=== PATIENT | female | born 1990 | race Caucasian/White ===

== ENCOUNTER 2022-04-05 01:16 | Inpatient (IN) ==
[2022-04-05] MEDS ORDERED: LACTATED RINGER'S 1,000 ML IV PRN (01:53)
[2022-04-05] MEDS ORDERED: LIDOCAINE 1% LOCAL 20 ML VIAL INFIL PRN (01:53)
[2022-04-05] MEDS ORDERED: OXYTOCIN 30 UNITS/500 ML BAG IV PRN ×2 (01:53→07:19)
[2022-04-05 02:18] LABS: Hematocrit (blood only) 36.2 % (34.1-44.9); Hemoglobin 12.2 g/dl (12.0-16.0); Mean Corpuscular Hemoglobin 28.6 pg (25.0-34.0); Mean Corpuscular Hgb Conc 33.7 g/dL (32.0-36.0); Mean Platelet Volume 12.9 fL (9.4-12.3); Platelet Count 178 K/uL (130-400); RDW Coefficient of Variation 13.7 % (11.5-14.5); RDW Standard Deviation 42.2 fL (36.4-46.3); Red Blood Count 4.26 M/uL (3.93-5.22); White Blood Count 13.28 K/ul (4.8-10.8)
[2022-04-05] MEDS ORDERED: ePHEDrine sulfate 50 MG/ML AMP ONE (03:30)
[2022-04-05] MEDS ORDERED: SODIUM CHLORIDE 0.9% INJ 10 ML VIAL ONE (03:31)
[2022-04-05] MEDS ORDERED: BUPIVACAINE 0.25% 30 ML VIAL ONE (03:31)
[2022-04-05] MEDS ORDERED: fentaNYL citrate 100 MCG/2 ML VIAL ONE (03:31)
[2022-04-05] MEDS ORDERED: LIDOCAINE 2%/EPINEPHRINE 1:200,000 20 ML SDV ONE (03:31)
[2022-04-05] MEDS ORDERED: fentaNYL 2MCG/ML ROPIVACAINE 1.25MG/ML 100 ML BAG EPI ONE (03:32)
--- NOTE | 2022-04-05 04:11 | Anesthesiology Consultation ---
Date of Service April 05, 2022 Assessment & Plan Chart Review Chart Review: Acceptable Risk for Labor Epidural Consults Requested none ASA ASA2 Proposed Anesthesia Anesthesia Type: Labor Epidural Risk / Benefits Reviewed With: PT / POA / Parent / Guardian, Accepts Plan and Informed Consent Obtained History Surgery labor epidural Height/Weight Height: 5 ft 2 in Weight: 82.554 kg Allergies Allergy/AdvReac Type Severity Reaction Status Date / Time cefaclor Allergy Mild RASH Verified 03/31/22 10:28 Medications Home Medications Medication Instructions Recorded Confirmed Last Taken multivit-min no.71-iron fum 28 1 cap PO DAILY #90 caps 12/18/20 04/05/22 Unknown mg-folate no.1 1 mg-dha 300 mg capsule (PN[facility]-[place]) valacyclovir 500 mg tablet 500 mg PO BID PRN outbreak 3 days 04/03/21 04/05/22 04/04/22 22:00 #18 tabs aspirin 81 mg capsule 81 mg PO DAILY 08/18/21 04/05/22 Unknown valacyclovir 500 mg tablet 500 mg PO BID 5 weeks #70 tabs 02/23/22 03/31/22 Unknown (Valtrex) Active Medications Generic Name Dose Route Start Last Admin Trade Name Freq PRN Reason Stop Dose Admin Lactated Ringer's 1,000 mls @ 125 mls/hr 04/05/22 01:53 04/05/22 03:25 Lr IV 04/07/22 01:52 999 mls/hr .Q8H PRN Administration L&D Protocol Protocol NPO Date Last Intake of Fluids: 04/05/22 Time Last Intake of Fluids: 04:00 Date Last Intake of Solids: 04/04/22 Time Last Intake of Solids: 19:00 Past Medical History Medical History Endometritis Female infertility Fertility testing Genital herpes History of ovarian cyst right History of recurrent miscarriages HSV-1 infection IUD (intrauterine device) in place 01/22/15-mirena removed 01/2020 Left acute otitis media Exercise / Class Metabolic Activity II 4-5 Yardwork/Stairs/Walk up hill Past Family History Family History Aunt Breast cancer maternal aunt x2 Uncle Prostate cancer Grandmother (Maternal) Pancreatic cancer Mother Hypertension Unknown Enlarged heart Sister Patent ductus arteriosus with repair at 1 year old Denies family history of Colon cancer Ovarian cancer Myocardial infarction Uterine cancer Past Surgical History Surgical History History of appendectomy History of tonsillectomy S/P wisdom tooth extraction Past Anesthesia History No Hx of Anesthesia Complications and No Family Hx of Anesthesia Complications History of PONV No Hx of PONV and No Hx of Motion Sickness Social History Smoking Status: Former smoker Hx Alcohol Use: No Hx Substance Use: No Physical Exam Vital Signs Last Vital Signs Temp 37.2 C 04/05/22 01:31 Pulse 88 04/05/22 04:01 Resp 20 04/05/22 01:31 BP 144/104 H 04/05/22 01:53 Pulse Ox 99 04/05/22 04:01 ENMT Mouth: + small oral opening; no TMJ abnormality Thyromental Distance: > or= 3.5 Finger Breadths Mallampati Class: III Neck normal visual inspection and trachea midline; neck extension not limited Respiratory normal respiratory effort Auscultation: lungs clear to auscultation bilaterally Cardiovascular Rate/Rhythm: regular rate and regular rhythm Heart Sounds: no murmur Musculoskeletal Spine: normal cervical ROM Extremities: full ROM of extremities Neurologic moves all extremities Psychiatric Orientation: alert and oriented x 3 Testing Laboratory Results 04/05/22 02:05 Blood Type O Positive 04/05/22 02:05
[2022-04-05] MEDS ORDERED: PROMETHAZINE HCL 25 MG in SODIUM CHLORIDE 0.9% 50 ML IV PRN (04:31)
[2022-04-05] MEDS ORDERED: ONDANSETRON INJ 2 MG/ML 2 ML VIAL IV PRN (04:31)
[2022-04-05] MEDS ORDERED: METOCLOPRAMIDE HCL 20 MG in SODIUM CHLORIDE 0.9% 50 ML IV PRN (04:31)
[2022-04-05] MEDS ORDERED: diphenhydrAMINE 50 MG/ML VIAL IV PRN (04:31)
[2022-04-05] MEDS ORDERED: NALOXONE HCL 0.4 MG/1 ML VIAL/CARP IV PRN (04:31)
[2022-04-05] MEDS ORDERED: fentaNYL 2MCG/ML ROPIVACAINE 1.25MG/ML 100 ML BAG EPI PRN (04:31)
[2022-04-05] MEDS ORDERED: ePHEDrine sulfate 50 MG/ML AMP IV PRN (04:31)
[2022-04-05] MEDS ORDERED: NALOXONE HCL 1 MG in SODIUM CHLORIDE 0.9% 1000ML 1,000 ML IV PRN (04:31)
[2022-04-05] MEDS ORDERED: NALBUPHINE HCL INJ 10 MG/ML AMP IV PRN (04:31)
--- NOTE | 2022-04-05 07:02 | Delivery Summary ---
Vaginal Delivery Summary Date of Service April 05, 2022 Patient arrived in active labor spontaneously requested epidural this was her second baby was uncomplicated she was at term she then ruptured spontaneously and is not fully dilated pushed over 7 tractions delivery baby in occiput anterior position there was some thin meconium baby's mouth and nares were then suctioned with bulb gentle traction on the baby no excessive force no nuchal cord live vigorous male infant cord clamped and cut cord blood obtained placenta removed with gentle traction IV Pitocin started uterine tone improved there was no tearing estimated blood loss 150 mL sponge and instrument counts were correct
[2022-04-05] MEDS ORDERED: bisacodyL 10 MG SUPP PR PRN (07:19)
[2022-04-05] MEDS ORDERED: BENZOCAINE 20% AER SPR 82.5 GM CAN EXT PRN (07:19)
[2022-04-05] MEDS ORDERED: ACETAMINOPHEN 325 MG TAB PO PRN (07:19)
[2022-04-05] MEDS ORDERED: HYDROCORTISONE ACETATE 25 MG SUPP PR PRN (07:19)
[2022-04-05] MEDS ORDERED: DIPHTHERIA/TETANUS/PERTUSSIS 0.5 ML SYR/VIAL IM ONE (07:19)
[2022-04-05] MEDS ORDERED: oxyCODONE/ACETAMINOPHEN 5mg/325mg TAB PO PRN (07:19)
--- NOTE | 2022-04-05 08:03 | Anesthesia Procedure Note ---
Date of Service April 05, 2022 Anesthesia Post Epidural Note Vital Signs Vital Signs: Temp Pulse Resp BP Pulse Ox 37.0 C 103 H 18 140/76 100 04/05/22 07:15 04/05/22 07:59 04/05/22 07:45 04/05/22 07:59 04/05/22 06:52 Pain Intensity Lower Abdomen: Pain Intensity: 1 Notes Mental Status: alert / awake / arousable and participated in evaluation Nausea / Vomiting: adequately controlled Pain: adequately controlled Airway Patency, RR, SpO2: stable & adequate BP & HR: stable & adequate Hydration State: stable & adequate Neuraxial Anesthesia: was administered and sensory block is resolving Anesthetic Complications: no major complications apparent and Pt Satisfied with anesthetic care Epidural: Removed without complications and With tip intact
[2022-04-05] MEDS: DOCUSATE SODIUM 100 MG CAP PO SCH ×2 (09:17→20:54)
[2022-04-05] MEDS: IBUPROFEN 600 MG TAB PO PRN ×3 (09:17→20:20)
[2022-04-05] MEDS: PRENATAL VITAMIN 1 TAB PO SCH (09:17)
[2022-04-06] MEDS: IBUPROFEN 600 MG TAB PO PRN ×2 (01:40→09:25)
[2022-04-06 06:55] LABS: Hematocrit (blood only) 30.7 % (34.1-44.9); Hemoglobin 10.6 g/dl (12.0-16.0); Mean Corpuscular Hemoglobin 29.1 pg (25.0-34.0); Mean Corpuscular Hgb Conc 34.5 g/dL (32.0-36.0); Mean Corpuscular Volume 84.3 fL (80.0-100.0); Mean Platelet Volume 12.1 fL (9.4-12.3); Platelet Count 181 K/uL (130-400); RDW Standard Deviation 42.7 fL (36.4-46.3); Red Blood Count 3.64 M/uL (3.93-5.22); White Blood Count 13.52 K/ul (4.8-10.8)
--- NOTE | 2022-04-06 07:37 | Obstetrical Progress Note ---
Date of Service <Alexander Nolasco DO - Last Filed: 04/06/22 07:38> April 06, 2022 Assessment & Plan <Alexander Nolasco DO - Last Filed: 04/06/22 07:38> (1) Encounter for care and examination after delivery: - Feels well today. Eating well, voiding well, ambulating well. - Pain well controlled with ibuprofen 600mg Q4H PRN - Routine care -- OOB, ambulation, diet progression as tolerated - After discharge will have 6 week follow-up with Dr. Sage. - Plan to D/C today. <Radha Parham, DO - Last Filed: 04/06/22 07:51> (1) Encounter for care and examination after delivery: Subjective <Alexander Nolasco DO - Last Filed: 04/06/22 07:38> Ambulation: ambulating normally Voiding: no voiding problems Passing Gas:: Yes Diet Tolerance:: regular diet Lochia:: Small Feeding Type:: breast feeding Current Pain Level(1-10): 0 Patient is a 32 y/o female who is now PPD # 1 following spontaneous vaginal delivery at 39 weeks and 5 days. Reports feeling well overall this morning. No abdominal cramping & 0-1/10 pain well managed on analgesics. Voiding well. Tolerating meals overnight and able to ambulate some. Able to pass gas and has had a normal bowel movement. Has some persistent lochia with some improvement this morning. Currently breast feeding. Review of Systems Denies fever, chills, sweats Denies shortness of breath, difficulty breathing, chest pain, palpitations, chest pressure. Denies breast pain. Denies dysuria. Denies headache or changes in vision. Physical Exam <Alexander Nolasco DO - Last Filed: 04/06/22 07:38> General: Alert, oriented. No acute distress. Cardiac: Regular rate and rhythm, no murmurs/rubs/gallops. Respiratory: Clear to auscultation bilaterally a/p, no wheezes/rales/rhonchi. No increased work of breathing. Symmetrical chest rise. No respiratory distress. Abdomen: Soft, nontender, nondistended. Bowel sounds present. Uterus: Uterine fundus firm, palpable 2 cm below umbilicus. Lower Extremities: No lower extremity edema or swelling. No deep calf pain. Roxy's negative bilaterally. Results & Data ([facility]) <Alexander Nolasco DO - Last Filed: 04/06/22 07:38> Vital Signs (Past 12 Hours) Vital Signs Temp Pulse Resp BP BP Pulse Ox O2 Del Method 04/06/22 04:30 36.7 C 89 18 121/77 97 Room Air 04/06/22 01:30 36.5 C 86 18 135/88 98 Room Air 04/05/22 20:15 36.8 C 97 H 18 132/88 96 Room Air <Radha Parham DO - Last Filed: 04/06/22 07:51> Co-Signing Physician Notes Resident Physician Supervision Note: I was present with Dr. Nolasco during the history and exam. I discussed the case with the resident and agree with the findings and plan as documented in the no te. Any exceptions or clarifications are listed here: PPD#1 doing well. Desires DC home. Reviewed PP instructions, followup 6w. Documented By: Radha Parham DO Resident Activity Tracking <Alexander Nolasco DO - Last Filed: 04/06/22 07:38> Resident Involvement: Resident Care Provided Care Provided: OB Delivery
[2022-04-06] MEDS: PRENATAL VITAMIN 1 TAB PO SCH (09:24)
[2022-04-06] MEDS: DOCUSATE SODIUM 100 MG CAP PO SCH (09:24)
[2022-04-06] MEDS ORDERED: bisacodyL 5 MG TABEC PO SCH (20:00)
== END 2022-04-06 14:25 | disposition home or self-care (01) | DRG 807 ==
LOC: OPB 01:16 → 4S1 01:18 → 4E2 09:08